=== PATIENT | female | born 1995 | race Caucasian/White ===

== ENCOUNTER 2016-12-09 17:06 | Inpatient (IN) ==
[2016-12-09] MEDS ORDERED: NS 1,000 ML IV ONE ×2 (17:28→20:02)
[2016-12-09] MEDS ORDERED: ZOFRAN IV ONE (17:28)
[2016-12-09] MEDS ORDERED: NS 1,000 ML ONE (17:29)
[2016-12-09] MEDS ORDERED: ZOFRAN ONE (17:29)
[2016-12-09 17:44] LABS: MANUAL DIFF NEEDED? NO
[2016-12-09 17:52] LABS: BASO% 0.2 % (0.0-0.8); EOS# 0.04 X1000 (0.0-0.7); EOS% 0.3 % (0.0-10.0); HEMATOCRIT 40.6 % (37.0-47.0); HEMOGLOBIN 14.8 g/dL (12.0-16.0); IMM GRAN# 0.04 X1000 (0.0-0.04); IMM GRAN% 0.3 % (0.0-0.5); LYMPH% 11.4 % (20.5-51.1); MCH 32.6 PG (27-31); MCHC 36.5 g/dL (33-37); MCV 89.4 FL (81-99); MONO# 0.75 X1000 (0.11-0.59); MONO% 5.3 % (1.7-9.3); MPV 9.5 FL (7.4-10.4); NEUT% 82.5 % (42.2-75.2); PLT 379 X1000 (130-400); RBC 4.54 XMIL (4.2-5.4)
[2016-12-09 17:56] LABS: OCCULT BLOOD 1 POSITIVE (NEGATIVE)
[2016-12-09 18:03] LABS: AGAP 13; ALKALINE PHOSPHATASE 52 U/L (32-104); AMYLASE 82 U/L (20-200); BUN 11 mg/dL (8-22); CALCIUM 9.2 mg/dL (8.8-10.2); CHLORIDE 104 mmol/L (98-107); COSMO 280; GOT 17 U/L (10-30); GPT 16 U/L (10-36); LIPASE 36 U/L (13-60); POTASSIUM 3.7 mmol/L (3.5-5.1); SODIUM 140 mmol/L (136-145); TCO2 23 mmol/L (25-35)
[2016-12-09 18:32] LABS: URINE CULTURE PL NEEDED? NO
[2016-12-09] MEDS ORDERED: SODIUM CHLORIDE 0.9% INJ ONE ×2 (18:33→18:39)
[2016-12-09] MEDS ORDERED: PHENERGAN IV ONE (18:33)
[2016-12-09] MEDS ORDERED: MORPHINE IV ONE ×2 (18:38→20:02)
[2016-12-09] MEDS ORDERED: PROTONIX IV ONE (18:39)
[2016-12-09 18:48] LABS: BILIRUBIN URINE NEGATIVE (NEGATIVE); BLOOD URINE NEGATIVE (NEGATIVE); CLARITY CLEAR (CLEAR); COLOR YELLOW; GLUCOSE URINE NEGATIVE (NEGATIVE); LEUKOCYTES URINE NEGATIVE (NEGATIVE); NITRITE URINE NEGATIVE (NEGATIVE); PROTEIN URINE NEGATIVE (NEGATIVE); SP GRAVITY URINE 1.005; UROBILINOGEN URINE NORMAL
[2016-12-09 18:58] LABS: URINE CAST NONE SEEN /LPF; URINE CRYSTAL NONE SEEN /HPF; URINE EPITHELIAL CELLS <10 /HPF (<10); URINE SOURCE CLEAN CATCH
--- NOTE | 2016-12-09 19:23 | Diag Imaging Result Doc PS360 ---
EXAM: CT ABD/PELVIS W/ IV CONT ONLY HISTORY: abd pain TECHNIQUE: CT of the abdomen and pelvis with intravenous contrast and dose reduction (clarity.) COMMENT: There is no evidence of acute disease in the visualized portion of the chest. There is mucosal thickening throughout almost the entire:. This is particularly severe in the right colon. The terminal ileum is slightly distended with some fecalized contents but there is no apparent mucosal ulceration or inflammatory change seen in the small bowel. Small bowel is not distended. The liver, spleen, adrenal glands, pancreas, and kidneys are unremarkable in appearance. There is no significant adenopathy. Pelvis: There is some free fluid in the cul-de-sac. This is actually a smaller volume than on 05/28/2016. There are apparent bilateral ovarian cysts. One such cyst on the left may be as much as 2 cm in size. IMPRESSION: Diffuse, fairly severe colitis. Electronically signed by Tapan Blackburn 12/09/2016 7:21 PM
[2016-12-09] MEDS ORDERED: FLAGYL 500 MG/NS 500 MG/100 ML IVPB IV ONE (19:29)
[2016-12-09] MEDS ORDERED: PROTONIX 80 MG in NS 80 ML IV SCH (20:43)
[2016-12-09] MEDS: DILAUDID IM PRN (23:08)
[2016-12-09] MEDS: REGLAN IV PRN (23:10)
[2016-12-09] MEDS: ZOSYN 3.375 GM in NS 50 ML IV SCH (23:10)
[2016-12-09] MEDS ORDERED: NS 1,000 ML IV SCH (23:28)
[2016-12-10] MEDS ORDERED: ATIVAN IV ONE (01:03)
[2016-12-10] MEDS: PROTONIX 80 MG in NS 80 ML IV SCH ×3 (01:29→21:35)
[2016-12-10] MEDS: DILAUDID IM PRN ×2 (03:11→07:04)
[2016-12-10] MEDS: FLAGYL 500 MG/NS 500 MG/100 ML IVPB IV SCH ×3 (03:46→20:09)
[2016-12-10] MEDS: LAMICTAL PO SCH ×2 (04:02→20:09)
[2016-12-10] MEDS: ZOSYN 3.375 GM in NS 50 ML IV SCH ×3 (05:27→17:00)
[2016-12-10] MEDS: REGLAN IV PRN (07:27)
[2016-12-10 08:59] LABS: HEMATOCRIT 41.6 % (37.0-47.0); HEMOGLOBIN 14.9 g/dL (12.0-16.0)
[2016-12-10] MEDS: DILAUDID IV PRN ×5 (10:27→21:34)
[2016-12-10] MEDS: NS 1,000 ML IV SCH ×2 (12:00→17:12)
[2016-12-10] MEDS ORDERED: GOLYTELY PO ONE (14:00)
[2016-12-10 16:03] LABS: MANUAL DIFF NEEDED? NO
[2016-12-10 16:04] LABS: BASO% 0.2 % (0.0-0.8); EOS# 0.04 X1000 (0.0-0.7); EOS% 0.2 % (0.0-10.0); HEMATOCRIT 37.4 % (37.0-47.0); HEMOGLOBIN 13.3 g/dL (12.0-16.0); IMM GRAN# 0.05 X1000 (0.0-0.04); IMM GRAN% 0.3 % (0.0-0.5); LYMPH# 1.87 X1000 (1.2-3.4); LYMPH% 11.1 % (20.5-51.1); MCH 32.4 PG (27-31); MCHC 35.6 g/dL (33-37); MONO# 1.65 X1000 (0.11-0.59); MONO% 9.8 % (1.7-9.3); MPV 9.4 FL (7.4-10.4); NEUT% 78.4 % (42.2-75.2); PLT 284 X1000 (130-400); RBC 4.11 XMIL (4.2-5.4)
[2016-12-10] MEDS: ATIVAN IV PRN ×2 (16:10→20:19)
[2016-12-10] MEDS: LEXAPRO PO SCH (16:11)
[2016-12-10] MEDS: PATIENT'S OWN MED PO SCH (16:11)
[2016-12-10 16:28] LABS: AGAP 11; BUN 5 mg/dL (8-22); CALCIUM 8.1 mg/dL (8.8-10.2); CHLORIDE 106 mmol/L (98-107); COSMO 280; POTASSIUM 3.7 mmol/L (3.5-5.1); SODIUM 142 mmol/L (136-145); TCO2 25 mmol/L (25-35)
[2016-12-10] MEDS: TYLENOL PO PRN (20:19)
[2016-12-10] MEDS ORDERED: DILAUDID IV ONE (20:37)
[2016-12-10] MEDS: PHENERGAN IV PRN (21:31)
[2016-12-11] MEDS: ZOSYN 3.375 GM in NS 50 ML IV SCH ×5 (00:01→23:32)
[2016-12-11] MEDS: NS 1,000 ML IV SCH ×5 (00:02→23:32)
[2016-12-11] MEDS: DILAUDID IV PRN ×7 (00:03→20:24)
[2016-12-11] MEDS: FLAGYL 500 MG/NS 500 MG/100 ML IVPB IV SCH ×3 (04:18→19:56)
[2016-12-11 05:04] LABS: MANUAL DIFF NEEDED? NO
[2016-12-11 05:21] LABS: BASO% 0.1 % (0.0-0.8); EOS# 0.05 X1000 (0.0-0.7); EOS% 0.4 % (0.0-10.0); HEMOGLOBIN 12.7 g/dL (12.0-16.0); IMM GRAN# 0.03 X1000 (0.0-0.04); IMM GRAN% 0.2 % (0.0-0.5); LYMPH# 1.64 X1000 (1.2-3.4); LYMPH% 11.7 % (20.5-51.1); MCH 32.7 PG (27-31); MCHC 35.3 g/dL (33-37); MCV 92.8 FL (81-99); MONO# 1.15 X1000 (0.11-0.59); MONO% 8.2 % (1.7-9.3); MPV 9.7 FL (7.4-10.4); NEUT% 79.4 % (42.2-75.2); PLT 250 X1000 (130-400); RBC 3.88 XMIL (4.2-5.4)
[2016-12-11 05:58] LABS: AGAP 16; ALBUMIN 2.9 g/dL (3.5-5.0); ALKALINE PHOSPHATASE 36 U/L (32-104); BUN 4 mg/dL (8-22); CALCIUM 7.8 mg/dL (8.8-10.2); CHLORIDE 105 mmol/L (98-107); COSMO 281; GOT 17 U/L (10-30); GPT 13 U/L (10-36); POTASSIUM 3.8 mmol/L (3.5-5.1); SODIUM 143 mmol/L (136-145); TCO2 22 mmol/L (25-35); TOTAL BILIRUBIN 0.57 mg/dL (0.20-1.00); TOTAL PROTEIN 5.1 g/dL (6.3-8.3)
[2016-12-11] MEDS: PHENERGAN IV PRN ×3 (07:31→20:25)
[2016-12-11] MEDS: PROTONIX 80 MG in NS 80 ML IV SCH ×2 (07:31→17:13)
[2016-12-11] MEDS: ATIVAN IV PRN ×3 (10:35→17:11)
[2016-12-11] MEDS ORDERED: LR 1,000 ML ONE (11:57)
[2016-12-11] MEDS ORDERED: DIPRIVAN 1% ONE (12:15)
[2016-12-11] MEDS ORDERED: VERSED ONE (12:15)
[2016-12-11] MEDS ORDERED: XYLOCAINE-MPF 2% ONE (12:16)
[2016-12-11] MEDS: PATIENT'S OWN MED PO SCH (12:46)
[2016-12-11] MEDS: LEXAPRO PO SCH ×2 (12:46→13:53)
[2016-12-11] MEDS ORDERED: ZOSYN ONE (13:06)
[2016-12-11] MEDS: LAMICTAL PO SCH ×2 (19:55→21:46)
[2016-12-12] MEDS: PHENERGAN IV PRN ×6 (00:09→22:19)
[2016-12-12] MEDS: FLAGYL 500 MG/NS 500 MG/100 ML IVPB IV SCH ×3 (03:04→20:16)
[2016-12-12] MEDS: PROTONIX 80 MG in NS 80 ML IV SCH (03:05)
[2016-12-12] MEDS: DILAUDID IV PRN ×5 (04:01→20:16)
[2016-12-12] MEDS: ZOSYN 3.375 GM in NS 50 ML IV SCH ×3 (04:02→16:47)
[2016-12-12 06:10] LABS: MANUAL DIFF NEEDED? NO
[2016-12-12 06:20] LABS: BASO% 0.2 % (0.0-0.8); EOS# 0.11 X1000 (0.0-0.7); EOS% 1.1 % (0.0-10.0); HEMATOCRIT 31.4 % (37.0-47.0); LYMPH# 1.65 X1000 (1.2-3.4); LYMPH% 16.3 % (20.5-51.1); MCH 32.4 PG (27-31); MCV 92.4 FL (81-99); MONO# 0.86 X1000 (0.11-0.59); MONO% 8.5 % (1.7-9.3); MPV 9.9 FL (7.4-10.4); NEUT% 73.9 % (42.2-75.2); PLT 221 X1000 (130-400)
[2016-12-12 06:33] LABS: AGAP 14; BUN 5 mg/dL (8-22); CALCIUM 7.6 mg/dL (8.8-10.2); CHLORIDE 104 mmol/L (98-107); COSMO 277; POTASSIUM 3.3 mmol/L (3.5-5.1); SODIUM 141 mmol/L (136-145); TCO2 23 mmol/L (25-35)
[2016-12-12] MEDS: LEXAPRO PO SCH (09:02)
[2016-12-12] MEDS: SODIUM CHLORIDE 0.9% INJ PRN ×4 (09:06→17:46)
[2016-12-12] MEDS: NS 1,000 ML IV SCH ×3 (09:43→20:16)
[2016-12-12] MEDS: PATIENT'S OWN MED PO SCH (11:56)
[2016-12-12] MEDS: POTASSIUM CHLORIDE 20 MEQ/SWI 20 MEQ/100 ML IVPB IV SCH ×2 (13:40→16:48)
[2016-12-12] MEDS: PROTONIX IV SCH (16:48)
[2016-12-12] MEDS: LAMICTAL PO SCH (20:16)
[2016-12-12] MEDS: ATIVAN IV PRN (23:21)
[2016-12-12] MEDS: TYLENOL PO PRN (23:21)
[2016-12-13] MEDS: ZOSYN 3.375 GM in NS 50 ML IV SCH ×4 (01:24→14:29)
[2016-12-13] MEDS: DILAUDID IV PRN ×4 (02:10→20:11)
[2016-12-13] MEDS: NS 1,000 ML IV SCH ×4 (04:28→22:05)
[2016-12-13] MEDS: ATIVAN IV PRN ×4 (04:28→22:05)
[2016-12-13] MEDS: FLAGYL 500 MG/NS 500 MG/100 ML IVPB IV SCH ×2 (04:28→11:28)
[2016-12-13] MEDS: TYLENOL PO PRN ×2 (05:45→17:15)
[2016-12-13] MEDS: PHENERGAN IV PRN ×4 (05:46→20:11)
[2016-12-13 06:03] LABS: HEMOGLOBIN 11.2 g/dL (12.0-16.0); MCH 32.9 PG (27-31); MCV 94.1 FL (81-99); MPV 9.8 FL (7.4-10.4); RBC 3.4 XMIL (4.2-5.4)
[2016-12-13 06:26] LABS: AGAP 14; BUN 3 mg/dL (8-22); CHLORIDE 106 mmol/L (98-107); COSMO 281; POTASSIUM 3.5 mmol/L (3.5-5.1); SODIUM 143 mmol/L (136-145); TCO2 23 mmol/L (25-35)
[2016-12-13 06:27] LABS: MAGNESIUM 1.5 mg/dL (1.5-2.7)
[2016-12-13] MEDS: CENTRUM SILVER PO SCH (08:55)
[2016-12-13] MEDS: LEXAPRO PO SCH (08:55)
[2016-12-13] MEDS: PATIENT'S OWN MED PO SCH (09:12)
[2016-12-13] MEDS: SODIUM CHLORIDE 0.9% INJ PRN (09:52)
[2016-12-13] MEDS ORDERED: MAGNESIUM SULFATE 2 GM/S.W.I. 2 GM/50 ML IVPB IV ONE (14:01)
[2016-12-13] MEDS ORDERED: NEUTRA-PHOS PO ONE (14:02)
[2016-12-13] MEDS: SODIUM CHLORIDE 0.9% INJ SCH (15:35)
[2016-12-13] MEDS: PROTONIX IV SCH (15:49)
[2016-12-13] MEDS: LAMICTAL PO SCH (22:05)
[2016-12-14] MEDS: TYLENOL PO PRN (01:02)
[2016-12-14] MEDS: DILAUDID IV PRN ×6 (01:02→22:05)
[2016-12-14] MEDS: PHENERGAN IV PRN ×6 (01:02→22:17)
[2016-12-14] MEDS: FLAGYL 500 MG/NS 500 MG/100 ML IVPB IV SCH ×3 (01:03→18:34)
[2016-12-14] MEDS: ZOSYN 3.375 GM in NS 50 ML IV SCH ×5 (02:29→22:11)
[2016-12-14] MEDS: ATIVAN IV PRN ×5 (02:35→22:59)
[2016-12-14] MEDS: NS 1,000 ML IV SCH (02:35)
[2016-12-14] MEDS ORDERED: ULTRAM PO PRN (06:32)
[2016-12-14 06:36] LABS: HEMATOCRIT 32.8 % (37.0-47.0); HEMOGLOBIN 11.6 g/dL (12.0-16.0); MCH 32.9 PG (27-31); MCHC 35.4 g/dL (33-37); MCV 92.9 FL (81-99); RBC 3.53 XMIL (4.2-5.4)
[2016-12-14 07:15] LABS: AGAP 15; BUN 1 mg/dL (8-22); CALCIUM 8.1 mg/dL (8.8-10.2); CHLORIDE 104 mmol/L (98-107); COSMO 282; POTASSIUM 3.3 mmol/L (3.5-5.1); SODIUM 144 mmol/L (136-145); TCO2 25 mmol/L (25-35)
[2016-12-14] MEDS ORDERED: KLOR-CON PO ONE (07:23)
[2016-12-14] MEDS: SODIUM CHLORIDE 0.9% INJ SCH ×3 (09:00→18:51)
[2016-12-14] MEDS: LEXAPRO PO SCH (09:01)
[2016-12-14] MEDS: CENTRUM SILVER PO SCH (09:01)
[2016-12-14] MEDS: PATIENT'S OWN MED PO SCH (09:03)
[2016-12-14] MEDS: LACTULOSE PO SCH ×2 (10:15→22:09)
[2016-12-14] MEDS: MIRALAX PO SCH ×2 (10:15→22:11)
[2016-12-14] MEDS: NORCO-5 PO PRN ×2 (13:18→18:52)
[2016-12-14] MEDS: SODIUM CHLORIDE 0.9% INJ PRN (13:23)
[2016-12-14] MEDS: PROTONIX IV SCH (15:32)
[2016-12-14] MEDS: LAMICTAL PO SCH (22:07)
[2016-12-14] MEDS: DULCOLAX PR SCH (22:11)
[2016-12-15] MEDS: FLAGYL 500 MG/NS 500 MG/100 ML IVPB IV SCH ×3 (05:30→22:19)
[2016-12-15] MEDS: ZOSYN 3.375 GM in NS 50 ML IV SCH ×3 (05:31→17:59)
[2016-12-15] MEDS: DILAUDID IV PRN ×3 (05:35→20:35)
[2016-12-15] MEDS: PHENERGAN IV PRN ×4 (05:36→22:20)
[2016-12-15 06:00] LABS: HEMATOCRIT 33.2 % (37.0-47.0); HEMOGLOBIN 11.7 g/dL (12.0-16.0); MCH 33.1 PG (27-31); MCHC 35.2 g/dL (33-37); MCV 94.1 FL (81-99); MPV 9.7 FL (7.4-10.4); RBC 3.53 XMIL (4.2-5.4)
[2016-12-15 06:24] LABS: AGAP 8; BUN 3 mg/dL (8-22); CHLORIDE 103 mmol/L (98-107); COSMO 281; POTASSIUM 3.9 mmol/L (3.5-5.1); SODIUM 143 mmol/L (136-145); TCO2 32 mmol/L (25-35)
[2016-12-15] MEDS: ATIVAN IV PRN ×3 (06:38→22:46)
[2016-12-15] MEDS: TYLENOL PO PRN (06:43)
[2016-12-15] MEDS: LEXAPRO PO SCH (11:02)
[2016-12-15] MEDS: CENTRUM SILVER PO SCH (11:02)
[2016-12-15] MEDS: PATIENT'S OWN MED PO SCH (11:03)
[2016-12-15] MEDS: MIRALAX PO SCH (11:04)
[2016-12-15] MEDS: LACTULOSE PO SCH (11:04)
[2016-12-15] MEDS: SODIUM CHLORIDE 0.9% INJ PRN ×2 (11:10→18:05)
[2016-12-15] MEDS: PROTONIX IV SCH (15:40)
[2016-12-15] MEDS: NORCO-5 PO PRN (18:05)
[2016-12-15] MEDS: DULCOLAX PR SCH (22:18)
[2016-12-15] MEDS: LAMICTAL PO SCH (22:19)
[2016-12-16] MEDS: ZOSYN 3.375 GM in NS 50 ML IV SCH ×4 (03:05→21:18)
[2016-12-16] MEDS: FLAGYL 500 MG/NS 500 MG/100 ML IVPB IV SCH ×3 (05:15→21:20)
[2016-12-16] MEDS: PATIENT'S OWN MED PO SCH (08:14)
[2016-12-16] MEDS: CENTRUM SILVER PO SCH (08:14)
[2016-12-16] MEDS: LEXAPRO PO SCH (08:14)
[2016-12-16] MEDS: SODIUM CHLORIDE 0.9% INJ PRN (08:15)
[2016-12-16] MEDS: PHENERGAN IV PRN ×3 (08:15→21:33)
[2016-12-16] MEDS: DILAUDID IV PRN ×3 (08:15→21:32)
[2016-12-16] MEDS ORDERED: COLACE PO SCH (09:00)
[2016-12-16] MEDS: ATIVAN IV PRN ×3 (12:06→22:44)
[2016-12-16] MEDS: NORCO-5 PO PRN ×2 (12:25→17:20)
[2016-12-16] MEDS: SODIUM CHLORIDE 0.9% INJ SCH (15:23)
[2016-12-16] MEDS: PROTONIX IV SCH (15:35)
--- NOTE | 2016-12-16 20:03 | Diag Imaging Result Doc PS360 ---
XRAY HIP W/PELVIS BILAT 3-4VWS - 12/16/2016 INDICATION: abdominal pain TECHNIQUE: Three views COMPARISON: CT from 12/09/2016 FINDINGS: The bones are intact and normally aligned. Joint spaces and soft tissues are clear. IMPRESSION: Negative exam. Electronically signed by Sameer Boudreaux 12/16/2016 8:00 PM
[2016-12-16] MEDS: LAMICTAL PO SCH (21:20)
[2016-12-16] MEDS: DULCOLAX PR SCH (21:39)
[2016-12-17] MEDS: ZOSYN 3.375 GM in NS 50 ML IV SCH ×2 (04:34→09:24)
[2016-12-17] MEDS: FLAGYL 500 MG/NS 500 MG/100 ML IVPB IV SCH (04:35)
[2016-12-17] MEDS: PHENERGAN IV PRN (06:08)
[2016-12-17 06:28] LABS: HEMATOCRIT 41.8 % (37.0-47.0); HEMOGLOBIN 14.7 g/dL (12.0-16.0); MCHC 35.2 g/dL (33-37); MCV 93.9 FL (81-99); MPV 9.7 FL (7.4-10.4); RBC 4.45 XMIL (4.2-5.4)
[2016-12-17] MEDS: DILAUDID IV PRN (06:51)
[2016-12-17 06:58] LABS: AGAP 14; BUN 5 mg/dL (8-22); CALCIUM 9.8 mg/dL (8.8-10.2); CHLORIDE 100 mmol/L (98-107); COSMO 281; POTASSIUM 3.8 mmol/L (3.5-5.1); SODIUM 143 mmol/L (136-145); TCO2 29 mmol/L (25-35)
[2016-12-17] MEDS: ATIVAN IV PRN (08:03)
[2016-12-17] MEDS: LEXAPRO PO SCH (08:04)
[2016-12-17] MEDS: CENTRUM SILVER PO SCH (08:04)
[2016-12-17] MEDS: NORCO-5 PO PRN (09:24)
[2016-12-17] MEDS ORDERED: NORCO-10 PO PRN (10:28)
[2016-12-17] MEDS ORDERED: KLONOPIN PO PRN (10:29)
[2016-12-17] MEDS ORDERED: FLAGYL PO SCH (13:00)
[2016-12-17] MEDS ORDERED: ZOFRAN ODT PO PRN (14:27)
[2016-12-17 16:15] VITALS: BP 129/91
[2016-12-17] MEDS ORDERED: CIPRO PO SCH (21:00)
== END 2016-12-17 17:33 | disposition home or self-care (01) ==
LOC: P.ED 17:06 → 4N 21:07 → SUATTDRO 21:07 → ICU 12-10 10:56 → 4N 12-11 15:35
PROVIDERS: ATTEND Internal Medicine